=== PATIENT | female | born 1955 | race Caucasian/White ===

== ENCOUNTER → 2016-10-20 | Outpatient (CLI) | payer BC ==
[~2016-10-20] MED LIST: AMIT-46 PO; CITA-108 PO; ESTR0.6261 PO; GABA300T23 PO; LOSA1TAB23 PO; METH5TAB PO; MULT-934 PO; [UNRECOGNIZED DRUG - CODE] PO
== END ==
LOC: WC.BC 15:10
DX: Z12.31 Encounter for screening mammogram for malignant neoplasm of breast (principal); N64.59 Other signs and symptoms in breast
CPT/HCPCS: 77063; G0202

== ENCOUNTER 2016-11-17 21:05 | Emergency (ER) | payer BC ==
[~2016-11-17] VITALS: Ht 177.8 cm; Wt 116.4 kg
--- OUTSIDE RECORDS SUMMARY | 2016-11-17 21:09 | XMS REPORT | Continuity of Care Document ---
Author Author Allegra Lind MD Organization [facility] Address [address] [place] [address] [place] [address] Phone Care Team Providers Care Durability Technician Name Role Phone Allegra Lind PP Unavailable Payers Payer name Insurance type Covered alliance party ID Authorization(s) Unknown Problems Condition Effective Dates (start - stop) Clinical Status Upper Respiratory Infection, Acute - *Acute Hypothyroidism - *Stable Preventive measure - *Routine Hypertension - *Chronic Depression - *Stable Influenza Vaccine - Obesity, morbid (more than 100 lbs over ideal weig - *Chronic Hypertension, Unspecified - *Chronic Hypothyroidism - *Chronic Need for unspecified prophylactic measure - *Chronic Other and unspecified hyperlipidemia - *Chronic Hair loss - *Chronic Keloid - *Chronic Ankle mass - *Acute Hypothyroidism - *Chronic Urinary urgency - *Acute Urinary tract infection - *Acute Intertrigo - *Chronic Hypothyroidism - *Chronic GOITER NOS - 311 - DEPRESSIVE DISORDER NEC - HYPERTENSION NOS - Family History Family Member Diagnosis Age At Onset Status Unknown Social History Social History Element Description Quantity Unknown Allergies, Adverse Reactions, Alerts Substance Reaction Severity Status CARBAMAZEPINE Unknown SULFA (SULFONAMIDE ANTIBIOTICS) Unknown TRIMETHOPRIM RASH Unknown SWELLING Unknown SULFAMETHOXAZOLE RASH Unknown Medications Medication Instructions Dosage Effective Dates (start - stop) Status amoxicillin 875 mg tablet take 1 tablet (875MG) by oral route every 12 hours for 7 days 875 MG - No Longer Active Tessalon Perles 100 mg capsule take 1 capsule (100MG) by oral route 3 times every day 100 MG - No Longer Active Premarin 0.625 mg tablet Take 1 tablet by mouth every day. - No Longer Active calcitriol 0.25 mcg capsule Take 1 capsule by mouth every day. 2013 - No Longer Active AsperDrink 81 mg effervescent tablet take 1 Tablet by Oral route every day 0 - Active amitriptyline 25 mg tablet take 2 Tablet (50MG) by oral route every day at bedtime 50 MG - Active Effexor XR 75 mg capsule,extended release take 2 capsule (150MG) by oral route every day 150 MG - Active multivitamin tablet take 1 Tablet by Oral route every day 0 - Active garlic 1,000 mg capsule TAKES 1 QD - Active calcium carbonate-vitamin D3 600 mg (1,500 mg)-1,000 unit capsule take 1 Capsule by Oral route every day 0 - Active Synthroid 137 mcg tablet Take 1 tablet by mouth every day. - Active gabapentin 300 mg capsule take 1 Capsule by Oral route 2 times every day 0 - Active Hyzaar 50 mg-12.5 mg tablet take 1 tablet by oral route every day 0 2013 - Active Premarin 0.625 mg tablet Take 1 tablet by mouth every day. - Active calcitriol 0.25 mcg capsule Take 1 capsule by mouth every day. 2013 - Active Immunizations Vaccine Date Status Comments flu (split) preservative free, 3 yrs or older completed Flu (split) (3 yrs or older) completed Results Test Name Date and Time Measure Units Reference Range Abnormal Flag Comments Panel Description: CBC WBC 14:37:00 8.4 1000/cmm 5.0-10.0 RBC 14:37:00 4.09 mil/cmm 3.70-5.20 HGB 14:37:00 12.5 g/dL 12.0-16.0 HCT 14:37:00 37.1 % 37.0-47.0 MCV 14:37:00 90.7 fL 80.0-96.0 MCH 14:37:00 30.6 pg 26.0-34.0 MCHC 14:37:00 33.7 g/dL 32.0-36.0 RDW 14:37:00 13.5 % 0.0-14.5 PLT 14:37:00 203 1000/cmm 150-400 SEG 14:37:00 69 % 50-70 LYMPH 14:37:00 25 % 20-40 MONO 14:37:00 6 % 4-8 EOSIN 14:37:00 0 % <6 BASO 14:37:00 0 % <2 Slide reviewed. Vital Signs Date / Time: Height Weight Pulse Rate Blood Pressure Temperature /13:39:00 69.50 in 208.80 lbs 84 /min 124/70 mm[Hg] 98.8 F Procedures Procedure Date Unknown Encounters Encounter Location Date Patient Visit [facility] Patient Visit [facility] Patient Visit [facility] Patient Visit [facility] Patient Visit [facility] Patient Visit [facility] Patient Visit [facility] Patient Visit [facility] Patient Visit [facility] Patient Visit [facility] Patient Visit [facility] Patient Visit [facility] Advance Directives Directive Effective Date Unknown
--- OUTSIDE RECORDS SUMMARY | 2016-11-17 21:09 | XMS REPORT | Referral Summary ---
Author Author [facility] Organization [facility] Address Unknown Phone Unavailable Care Team Providers Care Custom Ski Maker Name Role Phone Fox Hernandez Primary Care Physician [phone] Encounter [facility] [id number] Date(s): 01/11/15 - 01/11/15 [facility], [address] [place] [id number] Discharge Diagnosis: Thumb pain Discharge Diagnosis: Osteoarthritis Discharge Disposition: 01-Home or Self Care Attending Physician: Suad Brothers APRN Admitting Physician: Suad Brothers APRN Vital Signs Most recent to 1 oldest [Reference Range]: Temperature Tympanic 36.3 degC [36.6-38.1 degC] *LOW* (01/11/15 1:20 PM) Peripheral Pulse 78 bpm Rate [60-100 bpm] (01/11/15 1:20 PM) Respiratory Rate 17 br/min [14-20 br/min] (01/11/15 1:20 PM) Blood Pressure 130/80 mmHg [90-140/60-90 mmHg] (01/11/15 1:20 PM) Problem List Condition Effective Dates Status Health Status Informant Allergic Active rhinitis/Hay Fever(Confirmed) Depression(Confirmed Active ) Elevated blood Active pressure (not hypertension)(Confir med) Essential Active hypertension (disorder)(Confirmed ) Stress Active incontinence(Confirm ed) Goiter(Confirmed) Active Hair loss(Confirmed) Active Hyperlipidemia(Confi Active rmed) Hypertension(Confirm Active ed) Hypothyroidism Active (disorder)(Confirmed ) Infertility(Confirme 1977 Active d) Overweight(Confirmed Active ) Hyperhydrosis Active disorder(Confirmed) Ankle Active mass(Confirmed) Trigeminal 2000 Active neuralgia(Confirmed) UTI(Confirmed) Active Chicken Active pox(Confirmed) Allergies, Adverse Reactions, Alerts Substance Reaction Severity Status carBAMazepine Active sulfamethoxazole RASH Active trimethoprim RASH Active Medications amitriptyline 25 mg oral tablet 2 tabs, Oral, Bedtime (once a day), 0 Refill(s) Start Date: 01/13/14 Status: Ordered aspirin 0 Refill(s) Start Date: 01/13/14 Status: Ordered calcitriol 0.25 mcg oral capsule See Instructions, Take 1 capsule by mouth every day., # 30 tabs, 3 Refill(s), Pharmacy: [facility], Take 1 capsule by mouth every day. Start Date: 04/19/15 Status: Ordered Calcium 600+D tabs, Oral, TID, 0 Refill(s) Start Date: 01/13/14 Status: Ordered Effexor XR 75 mg oral capsule, extended release 1 caps, Oral, Daily, # 30 caps, 0 Refill(s) Start Date: 01/13/14 Status: Ordered gabapentin 300 mg capsule See Instructions, take 1 Capsule by Oral route 2 times every day, # 180 unknown unit, eRx: [facility], take 1 Capsule by Oral route 2 times every day Start Date: 08/22/14 Status: Ordered Garlic oral tablet 0 Refill(s) Start Date: 01/13/14 Status: Ordered Hyzaar 50 mg-12.5 mg oral tablet See Instructions, take 1 tablet by oral route every day, # 30 tabs, 3 Refill(s) , Pharmacy: [facility] Start Date: 04/19/15 Status: Ordered meloxicam 15 mg oral tablet 15 mg 1 tabs, Oral, Daily, # 30 tabs, 1 Refill(s), Pharmacy: [facility], 1 tabs Oral Daily Start Date: 04/19/15 Status: Ordered multivitamin Daily, 0 Refill(s) Start Date: 01/13/14 Status: Ordered Premarin 0.625 mg oral tablet See Instructions, Take 1 tablet by mouth every day., # 30 tabs, 3 Refill(s), Pharmacy: [facility], Take 1 tablet by mouth every day. Start Date: 04/19/15 Status: Ordered Synthroid 150 mcg (0.15 mg) oral tablet See Instructions, 1 tabs Oral Daily, # 90 tabs, eRx: [facility], 1 tabs Oral Daily Start Date: 07/20/15 Status: Ordered Results No data available for this section Immunizations Vaccine Date Refusal Reason influenza virus vaccine, live 07/15/13 influenza virus vaccine, live 05/06/12 tetanus-diphth toxoids (Td) adult/adol 04/19/15 Procedures Procedure Date Related Diagnosis Body Site Hysterectomy 2005 Appendectomy 1972 Colonoscopy Hyperhydrosis Tonsillectomy Social History Social History Type Response Smoking Status Former smoker Assessment and Plan Extracted from: Title: Office Visit Note Author: Suad Brothers APRN Date: 01/11/15 Assessment/Plan 1.Osteoarthritis reviewed xray. mobic 15mg daily. se discussed. let us know if s/s persist or worsen. Thumb pain Orders: meloxicam, 15 mg 1 tabs, Oral, Daily, # 30 tabs, 1 Refill(s), Pharmacy : [facility], 1 tabs Oral Daily
--- OUTSIDE RECORDS SUMMARY | 2016-11-17 21:09 | XMS REPORT | Continuity of Care Document ---
Author Author [facility] Organization [facility] Address Unknown Phone Unavailable Allergies Medications Problems Procedures Results Encounters ACCT No. Visit Date/Time Discharge Status Pt. Type Provider Facility Loc./Unit Complaint [id number] 10/06/2013 13:24:00 10/06/2013 23 :59:59 [facility] Outpatient
--- OUTSIDE RECORDS SUMMARY | 2016-11-17 21:09 | XMS REPORT | Referral Summary ---
Author Author [facility] Organization [facility] Address Unknown Phone Unavailable Care Team Providers Care Barrel Raiser Helper Name Role Phone Fox Hernandez Primary Care Physician [phone] Encounter [facility] [id number] Date(s): 04/19/15 - 04/19/15 [facility], [address] [place] [id number] Discharge Diagnosis: Essential hypertension (disorder) Discharge Diagnosis: Hypothyroidism (disorder) Discharge Diagnosis: Fatigue Discharge Disposition: 01-Home or Self Care Attending Physician: Ragini Hernandez DO Admitting Physician: Ragini Hernandez DO Vital Signs Most recent to 1 oldest [Reference Range]: Temperature Tympanic 36.9 degC [36.6-38.1 degC] (04/19/15 1:06 PM) Peripheral Pulse 94 bpm Rate [60-100 bpm] (04/19/15 1:06 PM) Respiratory Rate 16 br/min [14-20 br/min] (04/19/15 1:06 PM) Blood Pressure 140/80 mmHg [90-140/60-90 mmHg] (04/19/15 1:06 PM) SpO2 97 % (04/19/15 1:06 PM) Problem List Condition Effective Dates Status [...] by mouth every day., # 30 tabs, 6 Refill(s), eRx: [facility], Take 1 capsule by mouth every day. Start Date: 10/01/15 Status: Ordered Calcium 600+D tabs, Oral, TID, 0 Refill(s) Start Date: 01/13/14 Status: Ordered Effexor XR 75 mg oral capsule, extended release 1 caps, Oral, Daily, # 30 caps, 0 Refill(s) Start Date: 01/13/14 Status: Ordered gabapentin 300 mg capsule See Instructions, take 1 Capsule by Oral route 2 times every day, # 180 unknown unit, eRx: [facility], take 1 Capsule by Oral route 2 times every day Start Date: 08/22/14 Status: Ordered Garlic oral tablet 0 Refill(s) Start Date: 01/13/14 Status: Ordered Hyzaar 50 mg-12.5 mg oral tablet See Instructions, take 1 tablet by oral route every day, # 30 tabs, 3 Refill(s) , Pharmacy: [facility] Start Date: 04/19/15 Status: Ordered meloxicam 15 mg oral tablet 15 mg 1 tabs, Oral, Daily, # 30 tabs, 1 Refill(s), Pharmacy: [facility], 1 tabs Oral Daily Start Date: 04/19/15 Status: Ordered multivitamin Daily, 0 Refill(s) Start Date: 01/13/14 Status: Ordered Premarin 0.625 mg oral tablet See Instructions, Take 1 tablet by mouth every day., # 30 tabs, 6 Refill(s), eRx : [facility], Take 1 tablet by mouth every day. Start Date: 10/01/15 Status: Ordered Synthroid 150 mcg (0.15 mg) oral tablet See Instructions, 1 tabs Oral Daily, # 90 tabs, eRx: [facility], 1 tabs Oral Daily Start Date: 12/18/15 Status: Ordered Results Hematology Most recent to 1 oldest [Reference Range]: WBC [4.8-10.8 8.2 10*3/uL 10*3/uL] (04/19/15 2:07 PM) RBC [4.00-5.20] 4.54 (04/19/15 2:07 PM) Hgb [12.0-16.0 13.9 gm/dL gm/dL] (04/19/15 2:07 PM) Hct [37.0-47.0 %] 41.3 % (04/19/15 2:07 PM) MCV [82.0-99.0 fL] 91.0 fL (04/19/15 2:07 PM) MCH [27.0-32.0 pg] 30.6 pg (04/19/15 2:07 PM) MCHC [32.0-36.0 33.7 gm/dL gm/dL] (04/19/15 2:07 PM) RDW [11.5-14.5 %] 14.4 % (04/19/15 2:07 PM) Platelet [150-400 302 10*3/uL 10*3/uL] (04/19/15 2:07 PM) MPV [8.8-14.8 fL] 10.2 fL (04/19/15 2:07 PM) Immature 0.1 % Granulocytes (04/19/15 2:07 PM) [0.0-1.0 %] Neutrophils [51-75 58 % %] (04/19/15 2:07 PM) Lymphocytes [20-46 34 % %] (04/19/15 2:07 PM) Monocytes [4-11 %] 6 % (04/19/15 2:07 PM) Eosinophils [0-4 %] 1 % (04/19/15 2:07 PM) Basophils [0-2 %] 1 % (04/19/15 2:07 PM) Neutro Absolute 4.74 10*3 [1.90-7.00 10*3] (04/19/15 2:07 PM) Lymph Absolute 2.76 10*3 [0.80-3.30 10*3] (04/19/15 2:07 PM) [place] Absolute 0.52 10*3 [0.30-1.00 10*3] (04/19/15 2:07 PM) Eos Absolute 0.09 10*3 [0.00-0.50 10*3] (04/19/15 2:07 PM) Baso Absolute 0.04 10*3 [0.00-0.20 10*3] (04/19/15 2:07 PM) Chemistry Most recent to 1 oldest [Reference Range]: Sodium Lvl [135-144 141 mEq/L mEq/L] (04/19/15 2:07 PM) Potassium Lvl 4.2 mEq/L [3.5-5.2 mEq/L] (04/19/15 2:07 PM) Chloride [99-111 103 mEq/L mEq/L] (04/19/15 2:07 PM) CO2 [22-31 mEq/L] 30 mEq/L (04/19/15 2:07 PM) AGAP [3-20] 8 (04/19/15 2:07 PM) BUN [10-20 mg/dL] 13 mg/dL (04/19/15 2:07 PM) Glucose Lvl [70-99 105 mg/dL mg/dL] *HI* (04/19/15 2:07 PM) Creatinine Lvl 0.73 mg/dL [0.57-1.11 mg/dL] (04/19/15 2:07 PM) eGFR [>60 mL/min] >60 mL/min 1 (04/19/15 2:07 PM) Calcium Lvl 9.5 mg/dL [8.9-10.5 mg/dL] (04/19/15 2:07 PM) TSH with Reflex Free 2.42 T4 [0.35-4.94] (04/19/15 2:07 PM) 1Result Comment: Multiply eGFR results by 1.21 for race. Immunizations Vaccine Date Refusal Reason influenza virus vaccine, live 07/15/13 influenza virus vaccine, live 05/06/12 tetanus-diphth toxoids (Td) adult/adol 04/19/15 Procedures Procedure Date Related Diagnosis Body Site Collection of venous blood by venipuncture 04/19/15 Hysterectomy 2005 Appendectomy 1972 Colonoscopy Hyperhydrosis Tonsillectomy Social History Social History Type Response Smoking Status Former smoker Assessment and Plan Extracted from: Title: Ambulatory Patient Education Author: Ragini Hernandez DO Date: Family Medicine Hypothyroidism The thyroid is a large gland located in the lower front of your neck. The thyroid gland helps control metabolism. Metabolism is how your body handles food. It controls metabolism with the hormone thyroxine. When this gland is underactive (hypothyroid), it produces too little hormone. CAUSES These include: Absence or destruction of thyroid tissue. Goiter due to iodine deficiency. Goiter due to medications. Congenital defects (since ). Problems with the pituitary. This causes a lack of TSH (thyroid stimulating hormone). This hormone tells the thyroid to jewel bearing turner more hormone. SYMPTOMS Lethargy (feeling as though you have no energy) Cold intolerance Weight gain (in spite of normal food intake) Dry skin Coarse hair Menstrual irregularity (if severe, may lead to infertility) Slowing of thought processes Cardiac problems are also caused by insufficient amounts of thyroid hormone. Hypothyroidism in the is cretinism, and is an extreme form. It is important that this form be treated adequately and immediately or it will lead rapidly to retarded physical and mental development. DIAGNOSIS To prove hypothyroidism, your caregiver may do blood tests and ultrasound tests. Sometimes the signs are hidden. It may be necessary for your caregiver to watch this illness with blood tests either before or after diagnosis and treatment. TREATMENT Low levels of thyroid hormone are increased by using synthetic thyroid hormone. This is a safe, effective treatment. It usually takes about four weeks to gain the full effects of the medication. After you have the full effect of the medication, it will generally take another four weeks for problems to leave. Your caregiver may start you on low doses. If you have had heart problems the dose may be gradually increased. It is generally not an emergency to get rapidly to normal. HOME CARE INSTRUCTIONS Take your medications as your caregiver suggests. Let your caregiver know of any medications you are taking or start taking. Your caregiver will help you with dosage schedules. As your condition improves, your dosage needs may increase. It will be necessary to have continuing blood tests as suggested by your caregiver. Report all suspected medication side effects to your caregiver. SEEK MEDICAL CARE IF: Seek medical care if you develop: Sweating. Tremulousness (tremors). Anxiety. Rapid weight loss. Heat intolerance. Emotional swings. Diarrhea. Weakness. SEEK IMMEDIATE MEDICAL CARE IF: You develop chest pain, an irregular heart beat (palpitations), or a rapid heart beat. MAKE SURE YOU: Understand these instructions. Will watch your condition. Will get help right away if you are not doing well or get worse. Document Released: 07/20/2006 Document Revised: 10/11/2012 Document Reviewed: [employer] Patient Information 2015 [employer]. This information is not intended to replace advice given to you by your health care provider. Make sure you discuss any questions you have with your health care provider. No follow up information was provided. Extracted from: Title: Office Visit Note Author: Ragini Hernandez DO Date: 04/19/15 Assessment/Plan Essential hypertension (disorder) stable, lab today. Ordered: Basic Metabolic Panel Office Visit Level 4 Est 25569 Fatigue Will check for anemia, diabetes and thyroid dose. Ordered: CBC w/ Differential Office Visit Level 4 Est 02682 Hypothyroidism (disorder) Adjustments based on TSH results. Return to clinic 12 mo or sooner if problems. Ordered: Office Visit Level 4 Est 33642 TSH with Reflex Free T4 Immunization due Orders: calcitriol, See Instructions, Take 1 capsule by mouth every day., # 30 tabs, 3 Refill(s), Pharmacy: [facility], Take 1 capsule by mouth every day. conjugated estrogens, See Instructions, Take 1 tablet by mouth every day., # 30 tabs, 3 Refill(s), Pharmacy: [facility], Take 1 tablet by mouth every day. levothyroxine, 137 mcg 1 tabs, Oral, Daily, *last refill until seen* you will need to set up appointment with a new doc. or Dr. Hernandez, # 30 tabs, 0 Refill(s), Pharmacy: [facility], 1 tabs Oral Daily,Instr:*last refill until seen*; you will need to set up appo... losartan-hydrochlorothiazide, See Instructions, take 1 tablet by oral route every day, # 30 tabs, 3 Refill(s), Pharmacy: [facility] meloxicam, 15 mg 1 tabs, Oral, Daily, # 30 tabs, 1 Refill(s), Pharmacy: [facility], 1 tabs Oral Daily MG Mammogram Routine Screening Bilat
[2016-11-17 21:20] VITALS: Ht 177.8 cm; Wt 116.4 kg
--- NOTE | 2016-11-17 21:44 | ERPDOC ---
Departure Disposition Decision Date: Nov 17, 2016 Disposition Decision Time: 23:53 (PITO MONTEOR APRN) Disposition: 01 DISCHARGED HOME, SELF-CARE Impression Impression (PITO MONTERO APRN) Impression: Primary Impression: Left ureteral stone Severity: Moderate (PITO MONTERO APRN) Condition: Improved Seen By: Mid-level only (PITO MONTERO APRN) Referrals: ZOEY ARNDT DO (Family) Patient Instructions: Kidney Stones (ED) Problems/Meds/Labs Reviewed?: Yes Medications reviewed and manag: Yes (PITO MONTERO APRN) Additional Instructions: You have a 4mm kidney stone at the UVJ. Take [place] 5/325mg, 1-2 tabs every 4-6 hours as needed for pain. This medication may cause drowsiness so avoid operating heavy machinery, driving or drinking alcohol while taking. This medication may cause constipation so you may need to take a stool softener while taking. Take flomax 0.4mg, 1 tab daily. You may dissolve ondansetron, 4mg ODT on your tongue every 4-6 hours as needed for nausea/vomiting. You may take OTC ibuprofen for pain. Strain your urine for stone. If you are still having pain on Thursday this week call Dr. Jenkins's office or urologist of your choice for follow up. Follow up care ordered?: Yes Mental Status: Alert, Oriented (PITO MONTERO APRN) Scripts Tamsulosin HCl (Flomax) 0.4 Mg Capsule 0.4 MG PO HS for 5 Days, #5 CAP Take 1 capsule, by mouth, one time a day at BEDTIME. Prov: PITO MONTERO APRN 11/18/16 Hydrocodone/Acetaminophen ([place] 5-325 Tablet) 5-325 Tablet 1-2 TAB PO Q4-6HPRN for PAIN, #30 TAB Prov: PITO MONTERO APRN 11/18/16 Ondansetron (Ondansetron Odt) 4 Mg Tab.rapdis 4 MG PO Q4-6HPRN Y for NAUSEA &/OR VOMITING, #15 TAB Prov: PITO MONTERO APRN 11/18/16 HPI - Abdominal Pain General Chief Complaint: Flank Pain Stated Complaint: POSS KIDNEY STONES Time Seen by Provider: 21:43 Source: patient (PITO MONTERO APRN) Time Seen by Provider: 21:43 (ARMAAN KERN DO) HPI - Abdominal Pain Initial Comments 61 YO F presents to ED with left sided flank paint that radiates to LLQ. Patient says pain has been constant since it started this evening at 1800. Patient admits nausea and has had one emesis this evening. Patient says that she had pain similar to this on Thursday that last for a short time and then resolved. States she has been having problems empting her bladder completely for past 2 days. Denies fever, chills, cough, CP, dysuria or hematuria. Pain Scale: Now: 10/10 Quality: sharpness Location: left flank Radiation: LLQ Associated Symptoms: nausea/vomiting, DENIES: chest pain, diaphoresis, fever/ chills, shortness of breath, swelling/mass in abdomen, weakness (PITO MONTERO APRN) Allergies: Coded Allergies: Sulfa (Sulfonamide Antibiotics) (Verified Allergy, Unknown, 11/17/16) carbamazepine (Verified Allergy, Unknown, 11/17/16) latex (Verified Allergy, Unknown, 11/17/16) Past History Past Medical History Metabolic: hypertension, hyperthyroidism Cardiac: DENIES: angina Respiratory: DENIES: COPD, asthma GI: DENIES: ulcers Female: DENIES: renal insufficiency Neurological: DENIES: seizures Musculoskeletal: osteoarthritis Psychological: depression (PITO MONTERO APRN) Surgical History General: tonsils Reproductive/: hysterectomy (PITO MONTERO APRN) Family History Family PMH: FOUND: other (noncontributory) (PITO MONTERO APRN) Vaccines Hx Influenza Vaccination: Yes (2009) Hx Pneumococcal Vaccination: No (PITO MONTERO APRN) Social History Marital Status: Sexuality: male partner (PITO MONTERO APRN) Review of Systems Constitutional Constitutional: DENIES: chills, dizziness, fever, weakness (PITO MONTERO APRN) Eyes General: DENIES: erythema, exudate Lids/Accessories: DENIES: erythema, swelling (PITO MONTERO APRN) ENMT Ears: DENIES: pain Sinuses: DENIES: congestion, rhinorrhea Mouth/Throat: DENIES: sore throat (PITO MONTERO APRN) Cardiovascular Cardiac: DENIES: chest pain (PITO MONTERO APRN) Pulmonary Respiratory: DENIES: cough, dyspnea (MOTNERO,PITO A FIELD MECHANICAL METER TESTER) GI Upper Abdomen: nausea, see HPI, vomiting, DENIES: pain Lower Abdomen: pain (left flank), see HPI, DENIES: diarrhea (MONTERO,PITO A FIELD MECHANICAL METER TESTER) General: DENIES: hematuria, pain (MONTERO,PITO A FIELD MECHANICAL METER TESTER) Musculoskeletal General: DENIES: joint pain, pain, tenderness (MONTERO,PITO A FIELD MECHANICAL METER TESTER) Integumentary Skin: DENIES: color change, itching, rash (MONTERO,PITO A FIELD MECHANICAL METER TESTER) Neurological General: DENIES: ataxia, change in strength, numbness, paralysis/paresis, weakness (MONTERO,PITO A FIELD MECHANICAL METER TESTER) Psychiatric Psychiatric: DENIES: anxiety, depression, nervousness (MONTERO,PITO A FIELD MECHANICAL METER TESTER) Physical Exam General General Nourishment: well nourished, well developed, adult General Body Habitus: well groomed (MONTEROPITO A FIELD MECHANICAL METER TESTER) Vitals and Pain First Documented Vital Signs Date Time Temp Pulse Resp B/P Pulse Ox O2 Delivery O2 Flow Rate FiO2 11/17/16 21:20 98.1 78 12 221/103 95 Room Air (ARMAAN KERN DO) Vitals and Pain Weight: Kilograms: Height (feet): Height (inches): Triage Pain Scale: (WINSTON,PITO A FIELD MECHANICAL METER TESTER) Eyes (brief) Eyes Brief: found: EOMI (MONTERO,PITO A FIELD MECHANICAL METER TESTER) ENMT (brief) ENMT Brief: NOT FOUND: nasal exudate, nasal swelling (MONTERO,PITO A FIELD MECHANICAL METER TESTER) Neck (brief) Neck: FOUND: trachea midline (MONTERO,PITO A FIELD MECHANICAL METER TESTER) Respiratory (brief) Respiratory: FOUND: clear all bautista, equal bilaterally, symmetrical (MOTNERO, PITO A FIELD MECHANICAL METER TESTER) Cardiovascular (brief) Cardiac: FOUND: regular rate, regular rhythm (MONTERO,PITO A FIELD MECHANICAL METER TESTER) Abdomen Inspection: NOT FOUND: distention Palpation: FOUND: soft, tender (left flank), NOT FOUND: involuntary guarding, rebound, voluntary guarding Auscultation: FOUND: normoactive (x4) (MONTERO,PITO A FIELD MECHANICAL METER TESTER) Musculoskeletal (brief) Musculoskeletal Brief: NOT FOUND: deformity, loss of motion (MONTERO,PITO A FIELD MECHANICAL METER TESTER) Integumentary (brief) Integumentary Brief: FOUND: dry, pink, warm (PITO MONTERO FIELD MECHANICAL METER TESTER) Neurologic (brief) Neurological Brief: FOUND: motor-no gross deficits, sensory-no gross deficits ( PITO MONTERO APRN) Psychiatric (brief) Psychiatric Brief: FOUND: alert, normal affect, oriented (IPTO MONTERO FIELD MECHANICAL METER TESTER ) Differential Diagnoses Considering: Constipation, Diverticulitis, Pyelonephritis, Renal Colic, UTI (PITO MONTERO APRN) Progress Results/Orders Medications Current ED Medications Sodium Chloride (Normal Saline IV) 1,000 ml @ 250 mls/hr Q4H ONCE IV Last administered on 11/17/16 22:12; Start 11/17/16 at 21:49; Stop 11/18/16 at 00:41 ; Status DC Hydromorphone HCl (Dilaudid) 1 mg O ONCE IV Last administered on 11/17/16 22: 13; Start 11/17/16 at 22:00; Stop 11/17/16 at 22:01; Status DC Ondansetron HCl (Zofran) 4 mg O ONCE IV Last administered on 11/17/16 22:13; Start 11/17/16 at 22:00; Stop 11/17/16 at 22:01; Status DC Iohexol 1 bottle 1 bottle STK-MED ONCE .ROUTE ; Start 11/17/16 at 22:59; Stop at 23:00; Status DC Sodium Chloride (NS) 100 ml @ As Directed STK-MED ONCE .ROUTE ; Start 11/17/16 at 22:59; Stop 11/17/16 at 23:00; Status DC Sodium Chloride (Iv Flush) 10 ml STK-MED ONCE .ROUTE ; Start 11/17/16 at 22:59; Stop 11/17/16 at 23:00; Status DC Ketorolac Tromethamine (Toradol) 30 mg O ONCE IV Last administered on 00:01; Start 11/17/16 at 23:45; Stop 11/17/16 at 23:46; Status DC Tamsulosin HCl (FLOMAX 0.4 mg) 0.4 mg O ONCE PO Last administered on 00:01; Start 11/18/16 at 00:00; Stop 11/18/16 at 00:01; Status DC Acetaminophen/ Hydrocodone Bitart (NORCO 5 (PrePack)) 1 pack O ONCE SENT HOME Last administered on 11/18/16t 00:00; Start 11/18/16 at 00:00; Stop 11/18/16 at 00:01; Status DC Ondansetron HCl (ZOFRAN ODT (PrePack)) 1 pack O ONCE SENT HOME Last administered on 11/18/16t 00:13; Start 11/18/16 at 00:15; Stop 11/18/16 at 00:16 ; Status DC (ARMAAN KERN DO) Progress Progress Patient reports improvement of pain after Dilaudid and IV fluids. Labs are noncontributory. VS improving. Patient is up to BR and says that she has not been able to urinate "that much for several days". I discussed labs and CT findings with patient and answered questions. I discussed with patient that this stone is one that she most likely can pass. However, if pain does not resolve and she continues to have difficulty urinating she does need to follow with Dr. Jenkins or urologist of her choice. Patient verbalized understanding of treatment plan, follow-up with urologist and return precautions. (PITO MONTERO APRN) CT CT : CT: Abd/Pelvis IV contrast Interpretation: Abnormal (4mm stone at left UVJ), Faxed Report (PITO MONTERO APRN) PITO MONTERO APRN Nov 17, 2016 21:44 ARMAAN KERN DO Nov 21, 2016 10:09 White Blood Count 12.1T/MM3 Red Blood Count 4.67M/MM3 Hemoglobin 14.1GM/DL Hematocrit 42.1% Mean Corpuscular Volume 90.1UM3 Mean Corpuscular Hemoglobin 30.2UUG Mean Corpuscular Hemoglobin Concent 33.5GM/DL RDW Standard Deviation 46.3FL Platelet Count 266T/MM3 Mean Platelet Volume 9.6UM3 Immature Granulocyte % (Auto) 0.3% Neutrophils (%) (Auto) 84.4% Lymphocytes (%) (Auto) 11.0% Monocytes (%) (Auto) 3.9% Eosinophils (%) (Auto) 0.2% Basophils (%) (Auto) 0.2% Absolute Immature Granulocyte (auto 0.04T/MM3 Absolute Neutrophils (auto) 10.2T/MM3 Absolute Lymphocytes (auto) 1.3T/MM3 Absolute Monocytes (auto) 0.5T/MM3 Absolute Eosinophils (auto) 0.0T/MM3 Absolute Basophils (auto) 0.0T/MM3 Turbidity < 20 Sodium Level 142MEQ/L Potassium Level 4.5MEQ/L Chloride Level 102MEQ/L Carbon Dioxide Level 29MEQ/L Anion Gap 11MEQ/L Blood Urea Nitrogen 18.0MG/DL Creatinine 0.8MG/DL Glomerular Filtration Rate Calc 72 BUN/Creatinine Ratio 23RATIO Glucose Level 137MG/DL Calculated Osmolality 277MOSM/KG Calcium Level 9.2MG/DL Total Bilirubin 0.90MG/DL Icterus Index < 2 Aspartate Amino Transf (AST/SGOT) 41U/L Alanine Aminotransferase (ALT/SGPT) 37U/L Alkaline Phosphatase 130U/L Total Protein 7.2G/DL Albumin 4.0G/DL Globulin 3.2G/DL Albumin/Globulin Ratio 1.3RATIO Chemistry Specimen Hemolysis 53 Urine Collection Type Cleancatch-midstream Urine Color Yellow Urine Turbidity Clear Urine pH 6.0 Urine Specific [place] 1.020 Urine Protein Negative Urine Glucose (UA) Negative Urine Ketones Negative Urine Blood Trace-lysed Urine Nitrite Negative Urine Bilirubin 1+ Urine Urobilinogen 0.2EU/DL Urine Leukocyte Esterase Negative Urinalysis Comment Microscopic not ind. Medications Current ED Medications Sodium Chloride (Normal Saline IV) 1,000 ml @ 250 mls/hr Q4H ONCE IV Last administered on 11/17/16 22:12; Start 11/17/16 at 21:49; Stop 11/18/16 at 00:41 ; Status DC Hydromorphone HCl (Dilaudid) 1 mg O ONCE IV Last administered on 11/17/16 22: 13; Start 11/17/16 at 22:00; Stop 11/17/16 at 22:01; Status DC Ondansetron HCl (Zofran) 4 mg O ONCE IV Last administered on 11/17/16 22:13; Start 11/17/16 at 22:00; Stop 11/17/16 at 22:01; Status DC Iohexol 1 bottle 1 bottle STK-MED ONCE .ROUTE ; Start 11/17/16 at 22:59; Stop at 23:00; Status DC Sodium Chloride (NS) 100 ml @ As Directed STK-MED ONCE .ROUTE ; Start 11/17/16 at 22:59; Stop 11/17/16 at 23:00; Status DC Sodium Chloride (Iv Flush) 10 ml STK-MED ONCE .ROUTE ; Start 11/17/16 at 22:59; Stop 11/17/16 at 23:00; Status DC Ketorolac Tromethamine (Toradol) 30 mg O ONCE IV Last administered on 00:01; Start 11/17/16 at 23:45; Stop 11/17/16 at 23:46; Status DC Tamsulosin HCl (FLOMAX 0.4 mg) 0.4 mg O ONCE PO Last administered on 00:01; Start 11/18/16 at 00:00; Stop 11/18/16 at 00:01; Status DC Acetaminophen/ Hydrocodone Bitart (NORCO 5 (PrePack)) 1 pack O ONCE SENT HOME Last administered on 11/18/16 00:00; Start 11/18/16 at 00:00; Stop 11/18/16 at 00:01; Status DC Ondansetron HCl (ZOFRAN ODT (PrePack)) 1 pack O ONCE SENT HOME Last administered on 11/18/16 00:13; Start 11/18/16 at 00:15; Stop 11/18/16 at 00:16 ; Status DC Progress Progress Patient reports improvement of pain after Dilaudid and IV fluids. Labs are noncontributory. VS improving. Patient is up to BR and says that she has not been able to urinate "that much for several days". I discussed labs and CT findings with patient and answered questions. I discussed with patient that this stone is one that she most likely can pass. However, if pain does not resolve and she continues to have difficulty urinating she does need to follow with Dr. Jenkins or urologist of her choice. Patient verbalized understanding of treatment plan, follow-up with urologist and return precautions. CT CT : CT: Abd/Pelvis IV contrast Interpretation: Abnormal (4mm stone at left UVJ), Faxed Report PITO MONTERO FIELD MECHANICAL METER TESTER Nov 17, 2016 21:44
--- NOTE | 2016-11-17 21:48 | NUR ---
PROVIDER PROVIDER IN ROOM
[2016-11-17] MEDS ORDERED: NORMAL SALINE 1,000 ML IV ONE (21:49)
--- OUTSIDE RECORDS SUMMARY | 2016-11-17 21:50 | XMS REPORT | Continuity of Care Document ---
Author Author [facility] Organization [facility] Address Unknown Phone Unavailable Allergies Medications Problems Procedures Results Encounters ACCT No. Visit Date/Time Discharge Status Pt. Type Provider Facility Loc./Unit Complaint [id number] 10/06/2013 13:24:00 10/06/2013 23 :59:59 CLS Outpatient
[2016-11-17] MEDS ORDERED: HYDROMORPHONE 2mg/ml INJECTION IV ONE (22:00)
[2016-11-17] MEDS ORDERED: ONDANSETRON 4mg/2ml INJECTION IV ONE (22:00)
[2016-11-17 22:09] LABS: BASOPHILS % (AUTO) 0.2 % (0-2); EOSINOPHILS % (AUTO) 0.2 % (0-4); HCT - HEMATOCRIT 42.1 % (36-46); HGB - HEMOGLOBIN 14.1 GM/DL (12-16); IMMATURE GRANULOCYTE # (AUTO) 0.04 T/MM3 (0.00-0.03); IMMATURE GRANULOCYTE % (AUTO) 0.3 % (0.0-0.5); LYMPHOCYTES # (AUTO) 1.3 T/MM3 (1-4.8); MEAN CORPUSCULAR HGB 30.2 UUG (26-34); MEAN CORPUSCULAR HGB CONC(MCHC 33.5 GM/DL (31-37); MEAN CORPUSCULAR VOLUME 90.1 UM3 (80-100); MEAN PLATELET VOLUME 9.6 UM3 (9.4-12.4); MONOCYTES # (AUTO) 0.5 T/MM3 (0-0.8); MONOCYTES % (AUTO) 3.9 % (0-9.0); NEUTROPHILS #(AUTO)-ABSOLUTE 10.2 T/MM3 (1.8-7.7); NEUTROPHILS % (AUTO) 84.4 % (33-66); RED BLOOD COUNT 4.67 M/MM3 (4.00-5.20); WBC - WHITE BLOOD COUNT 12.1 T/MM3 (4.5-11.0)
[2016-11-17 22:22] LABS: ALBUMIN/GLOBULIN RATIO 1.3 RATIO (1.1-2.2); ALKALINE PHOSPHATASE 130 U/L (38-126); ALT (SGPT) 37 U/L (9-52); ANION GAP 11 MEQ/L (5-15); AST (SGOT) 41 U/L (14-36); BUN/CREATININE RATIO 23 RATIO (6-26); CALCIUM 9.2 MG/DL (8.4-10.2); CHLORIDE 102 MEQ/L (98-107); CO2 - CARBON DIOXIDE 29 MEQ/L (22-30); CREATININE 0.8 MG/DL (0.7-1.2); GLOMERULAR FILTRATION RATE 72; GLUCOSE 137 MG/DL (65-110); POTASSIUM 4.5 MEQ/L (3.6-5); SODIUM 142 MEQ/L (134-144); TOTAL PROTEIN 7.2 G/DL (6.3-8.2)
[2016-11-17 22:27] LABS: BLOOD, URINE TRACE-LYSED (NEGATIVE); COLOR,URINE YELLOW (YELLOW); LEUKOCYTE ESTERASE ,URINE NEGATIVE (NEGATIVE); NITRITE,URINE NEGATIVE (NEGATIVE); UROBILINOGEN,URINE 0.2 EU/DL (NORMAL)
[2016-11-17] MEDS ORDERED: SALINE FLUSH 10ml SYRINGE ONE (22:59)
[2016-11-17] MEDS ORDERED: IOHEXOL 300 MG/ML 100ml INJECTION ONE (22:59)
[2016-11-17] MEDS ORDERED: NORMAL SALINE 100 ML ONE (22:59)
[2016-11-17] MEDS ORDERED: KETOROLAC 30mg/ml INJECTION IV ONE (23:45)
[2016-11-18] MEDS ORDERED: HYDROCODONE/APAP 5/325 (PrePack) SENT HOME ONE
[2016-11-18] MEDS ORDERED: TAMSULOSIN 0.4 MG CAPSULE PO ONE
[2016-11-18] MEDS ORDERED: ONDA4TAB10 PO (00:07)
[2016-11-18] MEDS ORDERED: TAMS-1 PO (00:07)
[2016-11-18] MEDS ORDERED: HYDR-4246 PO (00:07)
[2016-11-18] MEDS ORDERED: ONDANSETRON ODT 4mg #3 (PrePack) SENT HOME ONE (00:15)
[2016-11-18 00:25] VITALS: BP 142/66; PULSE 87; RESP 14; TEMP 98.1; O2SAT 92
--- NOTE | 2016-11-18 08:21 | DI ---
Indication: ITS.REASON: left flank pain radiating to LLQ PROCEDURE: CT ABD/PELVIS W/CONTRAST ONLY: Encounter: Initial Comparison: None Technique: Axial CT images were performed through the abdomen and pelvis after the administration of intravenous contrast. Coronal and sagittal two-dimensional reformats. Automated Exposure Control and Iterative Reconstruction dose reducing techniques were utilized. Contrast: Omnipaque 300 100 mL Findings: The lung bases are grossly clear. The liver appears normal. The spleen, pancreas and adrenal glands are within normal limits. The bladder is normal. There is a 3 to 4 mm stone in the left distal ureter at the ureterovesicular junction with mild left hydronephrosis. Right kidney appears normal. Bladder itself is normal. Uterus is surgically absent. No evidence of a bowel obstruction. Bone windows show no acute findings. Impression: Minimally obstructing 3 to 4 mm left distal ureteral stone at the ureterovesicular junction. There is a preliminary report by [facility]. .
== END 2016-11-18 00:25 | disposition home or self-care (01) ==
LOC: ED 21:05
DX: N13.2 Hydronephrosis with renal and ureteral calculous obstruction (principal)
CPT/HCPCS: 74177; 80053; 81003; 85025; 96361; 96374; 96375; 99284; J1170; J1885; J2405; J7030; J7050; Q9967